=== PATIENT | female | born 2000 | race Caucasian/White ===

== ENCOUNTER 2025-08-21 08:38 | Inpatient (IN) | payer OTHER ==
[2025-08-21 09:33] LABS: Fetal Membranes Rupture RUPTURE DETECTED (No Rupture)
[2025-08-21 09:42] VITALS: BMI 25.4
[2025-08-21] MEDS ORDERED: Diphenoxylate HCl/Atropine Tablet PO PRN ×2 (09:48)
[2025-08-21] MEDS ORDERED: Carboprost 250 MCG/ML AMP IM PRN (09:48)
[2025-08-21] MEDS ORDERED: Tranexamic Acid 1,000 MG/10 ML VIAL IVP PRN (09:48)
[2025-08-21] MEDS ORDERED: Ondansetron PF 4 MG/2 ML Vial IVP PRN ×3 (09:48→19:39)
[2025-08-21] MEDS ORDERED: Lidocaine 1% (PF) 30 ML VIAL SC PRN (09:48)
[2025-08-21] MEDS ORDERED: hydrALAZINE 20 MG/ML VIAL SLOW IVP PRN ×3 (09:48→19:39)
[2025-08-21] MEDS ORDERED: HYDROcodone/Acetaminophen 5/325 mg Tablet PO PRN (09:48)
[2025-08-21] MEDS ORDERED: Methylergonovine 0.2 MG/ML VIAL IM PRN ×2 (09:48→19:39)
[2025-08-21] MEDS ORDERED: Oxytocin 30 units/NS 500 ML 500 ML IV SCH ×4 (10:00→19:45)
[2025-08-21 10:55] LABS: Hematocrit 37.3 % (34.9-44.5); Hemoglobin 12.9 g/dL (12.0-15.5); Mean Corpuscular Hemoglobin 29.9 pg (27.0-33.0); Mean Corpuscular Volume 86.5 fL (81.6-98.3); Platelet Count 247 10x3/uL (150-450); Red Blood Cell (RBC) Count 4.31 10x6/uL (3.90-5.03); White Blood Cell (WBC) Count 8.02 10x3/uL (3.5-10.5)
[2025-08-21 11:28] LABS: Hep B Surf Ag - L&D Non-Reactive S/CO (NonReactive)
[2025-08-21 11:30] LABS: Syphilis Antibody Index 0.04 S/CO (<1.00 Non-Reactive)
[2025-08-21] MEDS ORDERED: Acetaminophen 325 MG TAB PO PRN (16:18)
[2025-08-21] MEDS ORDERED: diphenhydrAMINE 50 MG/ML VIAL IVP PRN (16:18)
[2025-08-21] MEDS: fentaNYL/Ropivacaine Epidural 100 ML ONE (16:19)
[2025-08-21] MEDS ORDERED: fentaNYL 2 mcg/Ropivacaine 0.2% Epidural 100 ML CADD EPIDURAL SCH (16:30)
[2025-08-21] MEDS ORDERED: Communication Order-Pharmacy FS SCH (16:30)
[2025-08-21] MEDS ORDERED: Milk Of Magnesia 30 ML UDCUP PO PRN (19:39)
[2025-08-21] MEDS ORDERED: Benzocaine-Menthol 82.5 ML CAN TOP PRN (19:39)
[2025-08-21] MEDS ORDERED: Lanolin Ointment 7 GM TUBE TOP PRN (19:39)
[2025-08-21] MEDS ORDERED: Preparation H Ointment 28 GM TUBE PR PRN (19:39)
[2025-08-21] MEDS ORDERED: Boostrix 0.5 ML (Tdap) VIAL (>/=7 yrs of age) IM ONE (19:39)
[2025-08-21] MEDS ORDERED: Bisacodyl 10 MG SUPP PR PRN (19:39)
[2025-08-21] MEDS: Ibuprofen 800 MG TAB PO PRN (21:01)
[2025-08-22 04:18] LABS: Hematocrit 33.7 % (34.9-44.5); Hemoglobin 11.1 g/dL (12.0-15.5)
[2025-08-22] MEDS: Ibuprofen 800 MG TAB PO SCH (05:15)
[2025-08-22] MEDS ORDERED: Bupivacaine 0.25% HCL 30 ML VIAL ONE (13:31)
[2025-08-22] MEDS: Oxytocin 30 units/NS 500 ML 500 ML ONE (16:04)
[2025-08-22] MEDS: Ferrous Sulfate 325 MG TAB PO SCH (16:05)
[2025-08-23 07:46] VITALS: BP 104/64; TEMP 98.6
[2025-08-23] MEDS: HYDROcodone/Acetaminophen 5/325 mg Tablet PO PRN (12:21)
== END 2025-08-23 17:08 | disposition home or self-care (01) | DRG 807 ==
LOC: CSHLD/OP 08:38 → CSHLD 09:46 → CSHPP 21:30
PROVIDERS: ADMIT Student in an Organized Health Care Education/Training Program; ATTEND Student in an Organized Health Care Education/Training Program
PROC: 10E0XZZ Delivery of Products of Conception, External Approach (ICD-10-PCS; principal; 2025-08-21)
PROC: 0KQM0ZZ Repair Perineum Muscle, Open Approach (ICD-10-PCS; 2025-08-21)
PROC: 0UQMXZZ Repair Vulva, External Approach (ICD-10-PCS; 2025-08-21)
DX: O70.1 Second degree perineal laceration during delivery (principal); Z37.0 Single live birth; Z3A.38 38 weeks gestation of pregnancy; O70.0 First degree perineal laceration during delivery
CPT/HCPCS: 36415; 84112; 85014; 85018; 85027; 85461; 86780; 86850; 86870; 86900; 86901; 87340; 90384; 96372; 99285; J0665; J3105